=== PATIENT | female | born 1960 | race Caucasian/White ===

== ENCOUNTER 2024-01-01 08:40 | Outpatient (AMB) | payer BC, SELFPAY ==
[2024-01-01 08:48] VITALS: BP 160/100; PULSE 80; TEMP 36.6; O2SAT 96; BMI 38.2
--- NOTE | 2024-01-01 08:48 | AM.OFFWIN_ITS ---
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 Pt has history of asthma and takes albuterol periodically. Stopped seeing the provider and ran out of her steroid inhalers. Sx started one week ago. Non productive cough and wheezing. No fever or chills. Sx are worse at night PFSH Social History Patient Tobacco Use Status: Never used Tobacco Physical Exam Vital Signs: Last Vital Signs Temp 97.8 F 01/01/24 08:48 Pulse 80 01/01/24 08:48 BP 160/100 H 01/01/24 08:48 Pulse Ox 96 01/01/24 08:48 Oxygen Delivery Method Room Air 01/01/24 08:48 BMI result Body Mass Index 38.2 Const General: cooperative and healthy appearing Nutritional Appearance: well nourished Orientation/consciousness: patient oriented x3 Limitations: no limitations HEENT Head: Yes normal to inspection Eyes General: appearance normal, both eyes and all related structures Neck Neck: Yes normal visual inspection Chest Chest palpation & inspection: normal palpation of entire chest wall Resp Other: Scattered wheeze bilaterally. Effort & Inspection: normal respiratory effort Neuro General: patient oriented x3 Assessment & Plan Assessment & Plan (1) Exacerbation of asthma: Code(s): J45.901 - Unspecified asthma with (acute) exacerbation Plan: Albuterol solution for nebulizer, advair and prednisone in additon to antibiotics called in. Pt tolerated the nebulizer treatment well and benefitted from it. Orders: Orders AMB Nebulizer Treatment Today J45.901 - Unspecified asthma with (acute) exacerbation Medications: New albuterol sulfate 2.5 mg (3 mL) inhalation ONCE 3 mL 0RF J45.901 - Unspecified asthma with (acute) exacerbation albuterol sulfate 2.5 mg (3 mL) inhalation Q6H 75 mL 0RF amoxicillin 500 mg PO Q8H 30 caps 0RF fluticasone propion-salmeterol 250-50 mcg/dose (Advair Diskus) 1 inh inhalation BID 60 ea 1RF prednisone 60 mg (3 x 20 mg) PO DAILY 9 tabs 0RF Coding Level of Care Code New Pt Level 4 (43026) Diagnoses Exacerbation of asthma J45.901
== END 2024-01-01 09:45 | disposition home or self-care (01) ==
PROVIDERS: Visit Provider Internal Medicine
DX: J45.901 Unspecified asthma with (acute) exacerbation (principal)
CPT/HCPCS: 99204

== ENCOUNTER 2025-04-03 08:58 | Outpatient (AMB) | payer BC, SELFPAY ==
[2025-04-03 09:05] VITALS: BP 210/98; PULSE 75; TEMP 36.7; O2SAT 97; BMI 39.9
--- NOTE | 2025-04-03 09:05 | AM.OFFWIN_ITS ---
Intake Vital Signs 04/03/25 09:05 04/03/25 09:13 Height 5 ft 6 in Weight 247 lb BMI 39.9 BP 210/98 H 196/100 H Blood Pressure Location Rt brachial Lt brachial Position Sitting Sitting Pulse 75 Pulse Source Pulse Oximeter Temp 98.0 F Temp Source Oral Pulse Oximetry (%) 97 Oxygen Delivery Method Room Air Intake Visit Reasons: Asthma Intake Note: presents with asthma flare c/o dyspnea and SOB- ran out of inhaler Patient Tobacco Use Status: Never used Tobacco Allergies No Known Allergies Allergy (Verified 04/03/25 09:07) Do you need a note to return to daycare/school/sports/work: No HPI HPI Comments History of Present Illness Details 65 y/o Female patient who presents to [facility] with c/o SOB, Dsypnea and Wheezing. Pt is Asthmatic and currently ran out of her medications for months. She is a patient of Dr. Terrazas @ [facility]. [facility] Medical History (Updated 04/03/25 @ 09:38 by Blanche Gutierrez NP) Wheezing on auscultation Asthma with acute exacerbation Social History Patient Tobacco Use Status: Never used Tobacco Review of Systems Const All systems reviewed & are unremarkable except as noted in HPI and below Physical Exam Vital Signs: Last Vital Signs Temp 98.0 F 04/03/25 09:05 Pulse 75 04/03/25 09:05 BP 196/100 H 04/03/25 09:13 Pulse Ox 97 04/03/25 09:05 Oxygen Delivery Method Room Air 04/03/25 09:05 BMI result Body Mass Index 39.9 Const General: no acute distress; No comfortable Nutritional Appearance: obese Orientation/consciousness: patient oriented x3 Resp Effort & Inspection: normal respiratory effort and able to speak in complete sentences Auscultation: no crackles, no rales, rhonchi and wheezes scattered wheezes Cardio Heart sounds: S1 normal heart sound present and S2 normal heart sound present Neuro General: patient oriented x3, gait normal and moves all extremities Psych Speech and movement: Normal speech and movement present Assessment & Plan Assessment & Plan (1) Asthma with acute exacerbation: Code(s): J45.901 - Unspecified asthma with (acute) exacerbation Qualifiers: Asthma persistence: persistent Asthma severity: severe Qualified Code(s): J45.51 - Severe persistent asthma with (acute) exacerbation Plan: Ordered Wixela inhaler for daily use. Ordered Doxy for 5 days. Ordered Albuterol rescue in haler Advised to do Neb Tx at home every 4-6 hours. (2) Wheezing on auscultation: Code(s): R06.2 - Wheezing Plan: Ordered Wixela inhaler for daily use. Ordered Doxy for 5 days. Ordered Albuterol rescue in haler Advised to do Neb Tx at home every 4-6 hours. Ordered Prednisone Orders: Orders AMB Nebulizer Treatment Today J45.51 - Severe persistent asthma with (acute) exacerbation, R06.2 - Wheezing Medications: New albuterol sulfate 90 mcg/actuation 2 puffs inhalation Q4-6H PRN 6.7 grams 0RF shortness of breath or wheezing J45.51 - Severe persistent asthma with (acute) exacerbation, R06.2 - Wheezing prednisone 50 mg PO DAILY 5 tabs 0RF 5 days J45.51 - Severe persistent asthma with (acute) exacerbation, R06.2 - Wheezing ipratropium-albuterol 0.5 mg-3 mg(2.5 mg base)/3 mL 3 mL inhalation ONCE 3 mL 0RF J45.51 - Severe persistent asthma with (acute) exacerbation, R06.2 - Wheezing fluticasone propion-salmeterol 250-50 mcg/dose (Wixela Inhub) 1 inh inhalation BID 60 ea 1RF J45.51 - Severe persistent asthma with (acute) exacerbation, R06.2 - Wheezing doxycycline hyclate 100 mg PO BID 10 caps 0RF 5 days J45.51 - Severe persistent asthma with (acute) exacerbation Changed From albuterol sulfate 2.5 mg (3 mL) inhalation Q6H 75 mL 0RF J45.51 - Severe persistent asthma with (acute) exacerbation To albuterol sulfate 2.5 mg (3 mL) inhalation Q4-6H 90 mL 0RF J45.51 - Severe persistent asthma with (acute) exacerbation Coding Level of Care Code Est Pt Level 4 (12742) Diagnoses Severe persistent asthma with acute exacerbation J45.51 Asthma persistence: persistent Asthma severity: severe Wheezing on auscultation R06.2 Time Spent (min) 20
[2025-04-03 09:13] VITALS: BP 196/100
== END 2025-04-03 11:10 | disposition home or self-care (01) ==
PROVIDERS: Visit Provider Nurse Practitioner Family
DX: J45.51 Severe persistent asthma with (acute) exacerbation (principal)

== ENCOUNTER → 2025-04-03 08:58 | Outpatient (BNVA) | payer BC, SELFPAY | PROVIDERS: Visit Provider Nurse Practitioner Family | DX: J45.51 Severe persistent asthma with (acute) exacerbation (principal); R06.00 Dyspnea, unspecified; Z79.899 Other long term (current) drug therapy | CPT/HCPCS: 94640 ==